=== PATIENT | male | born 1960 | race Caucasian/White ===

== ENCOUNTER 2023-09-07 09:59 | Outpatient (CLI) | payer BC ==
[2023-09-07 11:36] LABS: Bilirubin Neg (Negative); Blood, Urine Negative (Negative); Glucose, Urine (Dipstick) 100 mg/dL (Negative); Ketone, Urine Negative (Negative); Leukocyte 100 (Negative); Nitrite Negative (Negative); Protein, Urine (Dipstick) 15 mg/dl (Neg-Trace)
[2023-09-07 11:48] LABS: Clarity Clear (Clear)
[2023-09-07 11:59] LABS: Bacteria/HPF None Seen HPF (None Seen); RBC/HPF None Seen HPF (0-3); Squamous Epithelial 0-3 HPF (0-3); WBC/HPF 0-3 HPF (0-3)
[2023-09-07 12:02] LABS: Hematocrit 41.6 % (38.8-50.0); Mean Corpuscular HGB CONC 33.7 g/dL (32.0-36.0); Mean Corpuscular Hemoglobin 31.1 pg (27.0-33.0); Mean Corpuscular Volume 92.4 fl (81.2-95.1); Platelet Count 168 10x3/uL (150-450); RBC Distribution Width 12.5 % (11.5-14.5); White Blood Cell (WBC) Count 4.9 10x3/uL (3.5-10.5)
[2023-09-07 12:11] LABS: PTT 26.4 sec (22.0-33.0); Prothrombin Time 11.1 sec (9.5-12.1)
[2023-09-07 12:13] LABS: ALT (SGPT) 34 U/L (8-55); AST (SGOT) 26 U/L (5-34); Albumin 4.3 g/dL (3.4-4.8); Alkaline Phosphatase 94 U/L (40-110); Anion Gap 15 mmol/L (10-20); BUN (Urea Nitrogen) 18 mg/dL (8.4-25.7); Bilirubin, Total 1.5 mg/dL (0.2-1.2); Calc. Creatinine Clearance 0 mL/min (70-130); Calcium 9.3 mg/dL (7.8-10.44); Carbon Dioxide 23 mmol/L (23-31); Chloride 103 mmol/L (98-107); Estimated GFR 57; Globulin 2.7 g/dL (2.4-3.5); Glucose 157 mg/dL (80-115); Potassium 4.1 mmol/L (3.5-5.1); Sodium 137 mmol/L (136-145)
== END 2023-09-07 10:00 | disposition home or self-care (01) ==
LOC: LABBT 09:59
PROVIDERS: ATTEND Urology
DX: Z01.818 Encounter for other preprocedural examination (principal); C61 Malignant neoplasm of prostate; I25.10 Atherosclerotic heart disease of native coronary artery without angina pectoris; N18.9 Chronic kidney disease, unspecified; N20.0 Calculus of kidney; N52.01 Erectile dysfunction due to arterial insufficiency
CPT/HCPCS: 80053; 81001; 85027; 85610; 85730; 86850; 86900; 86901; 87086; 93005; 93010

== ENCOUNTER 2023-09-07 10:00 | Inpatient (IN) | payer MEDICARE ==
[2023-09-07 10:30] VITALS: BMI 27.8
[2023-09-16] MEDS ORDERED: Lidocaine 1% MPF 2 ML VIAL ONE (06:48)
[2023-09-16] MEDS ORDERED: Ketorolac Tromethamine 30 MG (1 mL) VIAL ONE (06:48)
[2023-09-16] MEDS ORDERED: ceFOXitin 1 GM VIAL ONE (06:50)
[2023-09-16] MEDS ORDERED: Sodium Chloride 0.9% 100 ML ONE (06:50)
[2023-09-16] MEDS ORDERED: Fentanyl 250 MCG/5 ML VIAL ONE (06:55)
[2023-09-16] MEDS ORDERED: Midazolam HCl 2 mg/2 ml Vial ONE (06:55)
[2023-09-16] MEDS ORDERED: PROPOFOL 20 ML ONE (06:55)
[2023-09-16] MEDS ORDERED: SUGAMMADEX SODIUM 200 MG/2 ML VIAL ONE (06:56)
[2023-09-16] MEDS ORDERED: Dexamethasone 4 mg/ml Vial ONE (06:56)
[2023-09-16] MEDS ORDERED: Lidocaine 1% PF 5 ML VIAL ONE ×2 (06:56→07:40)
[2023-09-16] MEDS ORDERED: Ondansetron PF 4 MG/2 ML Vial ONE ×2 (06:56→07:40)
[2023-09-16] MEDS ORDERED: Rocuronium Bromide 10 MG/ML (10ML VIAL) ONE ×2 (06:56→07:40)
[2023-09-16] MEDS ORDERED: Phenylephrine 40 MG/NS 250 ML 250 ML ONE (06:58)
[2023-09-16] MEDS ORDERED: EPINEPHrine 1 MG/ML VIAL ONE (07:04)
[2023-09-16] MEDS ORDERED: Lidocaine 1% (PF) 30 ML VIAL ONE (07:05)
[2023-09-16] MEDS ORDERED: Bupivacaine 0.25% HCL 30 ML VIAL ONE (07:05)
[2023-09-16] MEDS ORDERED: Lidocaine 2% PF 5 ML VIAL ONE (07:05)
[2023-09-16] MEDS ORDERED: Gentamicin 80 MG/2 ML VIAL ONE (07:27)
[2023-09-16] MEDS ORDERED: PHENYLEPHRINE-NS 100 MCG/ML 10 ML SYRINGE ONE (07:40)
[2023-09-16] MEDS ORDERED: Dexamethasone 20 MG/5 ML VIAL ONE (07:40)
[2023-09-16] MEDS ORDERED: Vecuronium 10 MG VIAL ONE ×2 (07:40→08:31)
[2023-09-16] MEDS ORDERED: PROPOFOL 200 MG/20 ML VIAL ONE (07:40)
[2023-09-16] MEDS ORDERED: Ropivacaine 0.5% HCl/PF (150 MG/30 ML VIAL) ONE ×2 (09:09→12:50)
[2023-09-16] MEDS ORDERED: Ondansetron HCl/PF 4 MG/2 ML Vial IVP PRN (09:24)
[2023-09-16] MEDS ORDERED: Promethazine HCl 25 MG/ML VIAL IM PRN (09:24)
[2023-09-16] MEDS ORDERED: HYDROmorphone 2 MG/ML VIAL SLOW IVP PRN (09:24)
[2023-09-16] MEDS ORDERED: Glucagon 1 MG/ML KIT IM PRN (14:29)
[2023-09-16] MEDS ORDERED: Ondansetron PF 4 MG/2 ML Vial IVP PRN (14:29)
[2023-09-16] MEDS ORDERED: Mag-Al 1200 mg/1200 mg/30 ML UDCUP PO PRN (14:29)
[2023-09-16] MEDS ORDERED: Oxybutynin 5 MG TAB PO PRN (14:29)
[2023-09-16] MEDS ORDERED: hydrALAZINE 20 MG/ML VIAL SLOW IVP PRN (14:29)
[2023-09-16] MEDS ORDERED: fentaNYL 50 mcg/mL 1 mL Vial SLOW IVP PRN (14:29)
[2023-09-16] MEDS ORDERED: oxyCODONE 5 MG TAB PO PRN (14:29)
[2023-09-16] MEDS ORDERED: Dextrose 5% in Water 1,000 ML IV PRN (14:29)
[2023-09-16] MEDS ORDERED: diphenhydrAMINE 25 MG CAP PO PRN (14:29)
[2023-09-16] MEDS ORDERED: Dextrose 50% Abboject 50 ML SYRINGE SLOW IVP PRN (14:29)
[2023-09-16] MEDS: cefOXitin 1 GM in Sodium Chloride 0.9% 100 ML IVPB SCH (16:11)
[2023-09-16] MEDS: cefOXitin Sodium 1 GM in Sodium Chloride 0.9% 100 ML IVPB SCH (16:14)
[2023-09-16] MEDS ORDERED: cefOXitin Sodium 1 GM in Sodium Chloride 0.9% 100 ML IVPB SCH (16:15)
[2023-09-16 16:33] LABS: Hematocrit 38.3 % (42.0-52.0); Hemoglobin 12.7 g/dL (14.0-18.0); Mean Corpuscular HGB CONC 33.2 g/dL (32.0-36.0); Mean Corpuscular Hemoglobin 31.6 pg (27.0-31.0); Mean Corpuscular Volume 95.3 fl (78.0-98.0); Mean Platelet Volume 9.8 fL (7.4-10.4); Platelet Count 150 10x3/uL (130-400); RBC Distribution Width 12.6 % (11.5-14.5); Red Blood Cell (RBC) Count 4.02 mill/uL (4.70-6.10); White Blood Cell (WBC) Count 11.1 10x3/uL (4.8-10.8)
[2023-09-16 16:55] LABS: Anion Gap 16 mmol/L (10-20); BUN (Urea Nitrogen) 16 mg/dL (8.4-25.7); Calc. Creatinine Clearance 71 mL/min (70-130); Calcium 8.4 mg/dL (7.8-10.44); Carbon Dioxide 19 mmol/L (23-31); Chloride 108 mmol/L (98-107); Estimated GFR 58; Glucose 166 mg/dL (80-115); Potassium 4.1 mmol/L (3.5-5.1); Sodium 139 mmol/L (136-145)
[2023-09-16] MEDS: Sodium Chloride 0.9% 1,000 ML IV SCH (17:09)
[2023-09-16] MEDS: metFORMIN 500 MG TAB PO SCH (17:09)
[2023-09-16] MEDS: Acetaminophen 500 MG TAB PO SCH (17:09)
[2023-09-16] MEDS: traMADol HCl 50 MG TAB PO SCH (17:10)
[2023-09-16] MEDS: Hyoscyamine SL 0.125 MG TAB SL PRN (20:26)
[2023-09-16] MEDS: oxyCODONE 5 MG TAB PO PRN (20:27)
[2023-09-16] MEDS: Docusate 100 MG CAP PO SCH (20:27)
[2023-09-17 05:20] LABS: #Monocytes 0.7 thou/uL (0.11-0.59); %Basophils 0.1 % (0.0-1.0); %Lymphocytes 8.8 % (21.0-51.0); %Monocytes 7.2 % (0.0-10.0); %Neutrophils 83.6 % (42.0-75.0); Hematocrit 36.4 % (42.0-52.0); Hemoglobin 12.1 g/dL (14.0-18.0); Mean Corpuscular HGB CONC 33.2 g/dL (32.0-36.0); Mean Corpuscular Hemoglobin 30.9 pg (27.0-31.0); Mean Corpuscular Volume 93.1 fl (78.0-98.0); Mean Platelet Volume 9.7 fL (7.4-10.4); Platelet Count 132 10x3/uL (130-400); RBC Distribution Width 12.7 % (11.5-14.5); Red Blood Cell (RBC) Count 3.91 mill/uL (4.70-6.10); White Blood Cell (WBC) Count 9.6 10x3/uL (4.8-10.8)
[2023-09-17 05:47] LABS: Anion Gap 14 mmol/L (10-20); BUN (Urea Nitrogen) 15 mg/dL (8.4-25.7); Calc. Creatinine Clearance 81 mL/min (70-130); Calcium 8.4 mg/dL (7.8-10.44); Carbon Dioxide 21 mmol/L (23-31); Chloride 106 mmol/L (98-107); Estimated GFR 67; Glucose 132 mg/dL (80-115); Potassium 4.3 mmol/L (3.5-5.1); Sodium 137 mmol/L (136-145)
[2023-09-17] MEDS: Isosorbide Mononitrate 30 MG ER.TAB PO SCH (08:29)
[2023-09-17] MEDS: Lisinopril 20 MG TAB PO SCH (08:29)
[2023-09-17] MEDS: Nebivolol HCl 5 MG TAB PO SCH (08:30)
[2023-09-17] MEDS: dilTIAZem CD 240 MG CAP PO SCH (08:30)
[2023-09-17] MEDS: Atorvastatin Calcium 40 MG TAB PO SCH (08:30)
[2023-09-17] MEDS: Amlodipine 5 MG TAB PO SCH (08:31)
[2023-09-17] MEDS: HumaLOG 300 UNITS/3 ML VIAL SC PRN (12:19)
[2023-09-17 12:25] VITALS: BP 126/65; TEMP 97.9
== END 2023-09-17 15:28 | disposition home or self-care (01) | DRG 708 ==
LOC: SURG A 09-16 06:08 → EDSTATUS 09-16 10:00 → SURG B 09-16 15:11
PROVIDERS: ADMIT Urology; ATTEND Urology
PROC: 3E033XZ Introduction of Vasopressor into Peripheral Vein, Percutaneous Approach (ICD-10-PCS; principal; 2023-09-16)
PROC: 0VT04ZZ Resection of Prostate, Percutaneous Endoscopic Approach (ICD-10-PCS; 2023-09-16)
PROC: 07BC4ZZ Excision of Pelvis Lymphatic, Percutaneous Endoscopic Approach (ICD-10-PCS; 2023-09-16)
PROC: 8E0W4CZ Robotic Assisted Procedure of Trunk Region, Percutaneous Endoscopic Approach (ICD-10-PCS; 2023-09-16)
PROC: 0VT34ZZ Resection of Bilateral Seminal Vesicles, Percutaneous Endoscopic Approach (ICD-10-PCS; 2023-09-16)
DX: C61 Malignant neoplasm of prostate (principal); N18.9 Chronic kidney disease, unspecified; I12.9 Hypertensive chronic kidney disease with stage 1 through stage 4 chronic kidney disease, or unspecified chronic kidney disease; I25.10 Atherosclerotic heart disease of native coronary artery without angina pectoris
CPT/HCPCS: 36415; 36416; 80048; 85025; 85027; 86850; 86900; 86901; 88305; 88331; 88341; 88342; C1713; C1776; C1889; C9250; J0171; J0665; J0694; J1100; J1580; J1815; J1885; J2001; J2250; J2405; J2704; J2795; J3010; J3490; J7050